=== PATIENT | female | born 1985 ===

== ENCOUNTER 2020-01-23 08:43 | Day surgery (SDC) | payer OTHER ==
--- NOTE | 2020-01-16 14:01 | History and Physical Report ---
History of Present Illness Date of examination: 01/16/20 Chief complaint: severe dysplasia History of present illness: 34 yo otherwise uncomplicated presenting for management of LAZARA 2-3. Index HPV pos pap. Past History Past Medical History: no pertinent history Past Surgical History: no surgical history [employer] C[employer] History: abnormal PAP smear (LAZARA 2-3) Family/Genetic History: none Social history: no significant social history - Obstetrical History : 2 Para: 2 Hx # Term Pregnancies: 2 Number of Living Children: 2 Review of Systems All systems: negative (expect HPI) - Physical Exam Cardiovascular: Regular rate Lungs: Positive: Clear to auscultation Abdomen: Positive: normal appearance, normal bowel sounds Results All other labs normal. Assessment and Plan - Patient Problems (1) Cervical dysplasia Status: Acute Plan to address problem: --To OR for LEEP procedure for LAZARA 2-3 --Consented in the chart --Questions solicited and answered
[2020-01-23] MEDS ORDERED: HYDROmorphone 1 MG/1 ML INJ IV PRN ×2 (09:20)
[2020-01-23] MEDS ORDERED: ONDANSETRON 4 MG/2 ML INJ IV PRN (09:20)
[2020-01-23] MEDS ORDERED: FERRIC SUBSULFATE TOPICAL SOLN 8 ML TP ONE ×2 (09:21→10:55)
[2020-01-23] MEDS ORDERED: SILVER NITRATE APPLICATOR 1 EA TP ONE (09:21)
--- NOTE | 2020-01-23 09:21 | Anesthesia Day of Surgery ---
Anesthesia Day of Surgery - Day of Surgery Patient Examined: Yes Patient H&P Reviewed: Yes Patient is NPO: Yes
[2020-01-23] MEDS ORDERED: LIDOCAINE 2%/EPINEPHRINE 1:100,000 VIAL (20 ML) INFILTRATI ONE (09:22)
[2020-01-23] MEDS ORDERED: ACETIC ACID 3% SOLN 60 ML TP ONE (09:22)
[2020-01-23] MEDS ORDERED: POTASSIUM IODIDE/IODINE (LUGOLS) 30 ML TP ONE ×3 (09:22→10:27)
--- NOTE | 2020-01-23 09:22 | Anesthesia Consultation ---
Anesthesia Consult and Med Hx Date of service: 01/23/20 - Airway Anesthetic Teeth Evaluation: Good ROM Head & Neck: Adequate Mental/Hyoid Distance: Adequate Mallampati Class: Class IV Intubation Access Assessment: Possibly Difficult - Pre-Operative Health Status ASA Pre-Surgery Classification: ASA1 Proposed Anesthetic Plan: General - Pulmonary Hx Smoking: No - Cardiovascular System Hx Hypertension: No - Central Nervous System Hx Psychiatric Problems: No - Other Systems Hx Cancer: No Hx Obesity: No
[2020-01-23] MEDS ORDERED: LACTATED RINGERS 1,000 ML IV SCH (09:30)
[2020-01-23] MEDS ORDERED: propofoL 200 MG/20 ML VIAL IV ONE (09:55)
[2020-01-23] MEDS ORDERED: fentaNYL 100 MCG/2 ML INJ ONE (09:55)
[2020-01-23] MEDS ORDERED: LIDOCAINE MPF (2%) 20 MG/1 ML VIAL 5 ML ONE (09:55)
[2020-01-23] MEDS ORDERED: MIDAZOLAM 2 MG/2 ML INJ IV NR (10:00)
[2020-01-23 10:04] LABS: Basophils % (Auto) 0.5 % (0.0-1.8); Eosinophils # (Auto) 0.2 K/mm3 (0.0-0.4); Eosinophils % (Auto) 3.3 % (0.0-4.3); Hematocrit 40.7 % (30.3-42.9); Hemoglobin 13.8 gm/dl (10.1-14.3); Lymphocytes # (Auto) 1.9 K/mm3 (1.2-5.4); Lymphocytes % (Auto) 38.1 % (13.4-35.0); Mean Corpuscular HGB Conc 34 % (30-34); Mean Corpuscular Volume 93 fl (79-97); Monocytes # (Auto) 0.4 K/mm3 (0.0-0.8); Monocytes % (Auto) 8.6 % (0.0-7.3); Platelet Count 260 K/mm3 (140-440); Red Blood Count 4.39 M/mm3 (3.65-5.03)
[2020-01-23] MEDS ORDERED: SODIUM CHLORIDE 0.9% IRR 1,500 ML BOTTLE IR ONE (10:27)
[2020-01-23] MEDS ORDERED: PHENYLEPHRINE/NS 1,000 MCG/10 ML SYRINGE (OR USE) IV ONE (10:37)
[2020-01-23] MEDS ORDERED: ONDANSETRON 4 MG/2 ML INJ ONE (10:37)
[2020-01-23] MEDS ORDERED: dexAMETHasone 20 MG/5 ML VIAL ONE (10:37)
--- NOTE | 2020-01-23 10:59 | Procedure Note ---
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 Exam under anesthesia 2. Loop electrosurgical excision procedure 3. Endocervical curettage Surgeon: Darlene Damico MD Estimated blood loss 50cc Intraoperative IV fluids 500cc Urine output 10cc Pathology specimens: 1. Posterior cervix marked at 1 oclock 2. Anterior cervix marked at 12 oclock 2. Endocervical curettage Complications: none Disposition and condition: To the PACU in stable condition then discharged home Findings: 1. Small anteverted mobile uterus without any adnexal masses on EUA 2. Grossly normal-appearing cervix Statement medical necessity: This is a 34-year-old G 2 P 2 patient, with a history of HPV pos pap smear followed by suspected satisfactory colposcopy and biopsy proven LAZARA 2-3. The procedural risk, benefits, indications and alternatives were thoroughly reviewed patient and she desired to proceed with surgical management. Description of operation: After obtaining informed consent the patient was taken to the operating room where satisfactory general endotracheal anesthesia was established. The patient was placed in the standard lithotomy position using Kody stirrups, ensuring proper positioning and cushioning to avoid injury. Exam under anesthesia was performed with the findings noted above. Straight catheterization of the bladder was performed. Patient was prepped and draped in the usual sterile fashion. Coated sidewall retractors were inserted into the anterior and posterior vaginal fornix to assist with visualization of the cervix. The cervix and upper vagina were coated with the Lugol's iodine and inspected for nonstaining areas. The entire transformation zone was visualized and there was a small circumferential nonstaining area around the cervical os. A LEEP was completed with a 12x15 mm loop electrode in a posterior, then anterior passed with two specimens obtained. An endocervical curettage was subsequently performed. All specimens were sent to pathology. The biopsy site was rendered hemostatic with Bovie electrocautery with a 5 mm electrosurgical ball electrode and Monsel's solution was applied to the excisional base. The retractors were removed. The patient was returned to dorsal supine position. The patient tolerated procedure well, was extubated without difficulty and transferred to recovery in good condition. Sponge, needle and instrument counts are correct x2. There is no surgical or anesthetic complications. Anesthesia: GETA Surgeon: DARLENE DAMICO JR Estimated blood loss: 50-100ml IV fluids: 500 Urine output: 10 Pathology: list (1. anterior cervix marked at 12 oclock, posterior cervix marked at 1 oclock, endocervical curretage) Specimen disposition: to lab Condition: stable Disposition: same day
[2020-01-23] MEDS ORDERED: oxyCODONE /ACETAMINOPHEN 5-325MG TAB PO PRN (11:00)
[2020-01-23] MEDS ORDERED: IBUPROFEN 600 MG TAB PO PRN (11:00)
[2020-01-23 11:14] VITALS: BP 122/65
--- NOTE | 2020-01-23 14:37 | Post Anesthesia Evaluation ---
- Post Anesthesia Evaluation Patient Participated: Yes Airway Patent: Yes Stable Respiratory Function: Yes Nausea/Vomiting: No Temp > 96.8F: Yes Pain Manageable: Yes Adequeate Hydration: Yes Anesthesia Complications: No Block Receding Appropriately: Not Applicable Patient on Ventilator: No
== END 2020-01-23 08:44 | disposition home or self-care (01) ==
LOC: OR 08:43
PROVIDERS: ATTEND Obstetrics & Gynecology
DX: D06.0 Carcinoma in situ of endocervix (principal); Z98.890 Other specified postprocedural states
CPT/HCPCS: 36415; 57522; 81025; 85025; 86850; 86900; 86901; 88305; J1100; J1170; J2250; J2370; J2405; J2704; J3010; J7120; 88307